=== PATIENT | male | born 1965 | race Caucasian/White ===

== ENCOUNTER 2021-10-18 19:53 | Emergency (ER) | payer OTHER ==
[~2021-10-18] VITALS: Ht 172.7 cm; Wt 71.2 kg
[~2021-10-18 19:53] MED LIST: ANTIDEPRESSANT; CEPH500 PO; CLIN150 PO; CLIN300 PO; Cipro500 MG PO; DOXY100 PO; HYDACE5 PO; LORA1 PO; MELO7.5 PO; Naprosyn500 MG PO; Percocet 5-3251 EACH PO; RXTRAM50 PO; SULTRIDS PO; TRAM50 PO; Ultram50 MG PO; VENL75ER; Vibramycin100 MG PO
== END 2021-10-18 23:10 | disposition home or self-care (01) ==
LOC: ER 19:53
DX: S61.210A Laceration without foreign body of right index finger without damage to nail, initial encounter (principal); S61.411A Laceration without foreign body of right hand, initial encounter; F17.210 Nicotine dependence, cigarettes, uncomplicated; Z88.6 Allergy status to analgesic agent; Z88.8 Allergy status to other drugs, medicaments and biological substances; W23.0XXA Caught, crushed, jammed, or pinched between moving objects, initial encounter
CPT/HCPCS: 12002; 73130; 99283-25

== ENCOUNTER 2022-01-05 12:16 | Emergency (ER) | payer OTHER ==
[~2022-01-05] VITALS: Ht 172.7 cm; Wt 65.8 kg
[2022-01-05 15:57] LABS: Source, Urine Clean Catch
[2022-01-05 16:01] LABS: Appearance, Urine Clear (Clear); Bilirubin, Urine Neg (Neg); Blood, Urine Neg (Neg); Color, Urine Yellow (P-Yellow); Glucose Qualitative, Urine Neg (Neg); Ketones, Urine Neg (Neg); Leukocyte Esterase, Urine 1+ (Neg); Nitrite, Urine Neg (Neg); Protein, Urine 2+ (Neg); Urobilinogen, Urine NORM (Normal); pH, Urine 6.5 (5.0-8.0)
[2022-01-05 16:09] LABS: Bacteria Few /hpf; Mucus Mod (0-Heavy); Red Blood Cells, Urine 0-2 /hpf (0-2); Renal Epithelial Rare /hpf (0-Rare); Squamous Epithelial Cells Rare /hpf (Few); White Blood Cells, Urine 0-2 /hpf (0-5)
[2022-01-05] MEDS ORDERED: HYDR1TAB94 PO (16:28)
== END 2022-01-05 16:30 | disposition home or self-care (01) ==
LOC: ER 12:16
PROVIDERS: Student in an Organized Health Care Education/Training Program
DX: K40.90 Unilateral inguinal hernia, without obstruction or gangrene, not specified as recurrent (principal); Z88.6 Allergy status to analgesic agent; Z88.8 Allergy status to other drugs, medicaments and biological substances; F17.210 Nicotine dependence, cigarettes, uncomplicated
CPT/HCPCS: 76857; 81001; 87086

== ENCOUNTER 2022-05-28 11:41 | Day surgery (SDC) | payer OTHER ==
[~2022-05-28] VITALS: Ht 172.7 cm; Wt 69.6 kg
[~2022-05-28 11:41] MED LIST changes: +HYDR1TAB94 PO
[2022-05-28] MEDS ORDERED: IBU800 M1 (12:11)
== END 2022-05-28 13:47 | disposition home or self-care (01) ==
LOC: ORSCSDS 11:41
PROVIDERS: Surgery
PROC: 0DJD8ZZ Inspection of Lower Intestinal Tract, Via Natural or Artificial Opening Endoscopic (ICD-10-PCS; principal; 2022-05-28 13:00)
DX: Z12.11 Encounter for screening for malignant neoplasm of colon (principal); F17.210 Nicotine dependence, cigarettes, uncomplicated
CPT/HCPCS: J2250; J2704; J7120

== ENCOUNTER 2022-10-22 14:46 | Emergency (ER) | payer OTHER ==
[~2022-10-22] VITALS: Ht 172.7 cm; Wt 68.0 kg
[~2022-10-22 14:46] MED LIST changes: +IBU800 M1
[2022-10-22 15:19] VITALS: BP 140/122
[2022-10-22 15:46] LABS: Source, Urine Clean Catch
[2022-10-22 15:57] LABS: Appearance, Urine Clear (Clear); Bilirubin, Urine Neg (Neg); Blood, Urine Neg (Neg); Color, Urine Yellow (P-Yellow); Glucose Qualitative, Urine Neg (Neg); Ketones, Urine Neg (Neg); Leukocyte Esterase, Urine Neg (Neg); Nitrite, Urine Neg (Neg); Protein, Urine 2+ (Neg); Urobilinogen, Urine NORM (Normal)
[2022-10-22 16:07] LABS: Mucus Light (0-Heavy)
[2022-10-22 16:08] LABS: Red Blood Cells, Urine 0-2 /hpf (0-2); White Blood Cells, Urine 0-2 /hpf (0-5)
[2022-10-22 16:09] LABS: Bacteria Few /hpf; Squamous Epithelial Cells Not Seen /hpf (Few)
== END 2022-10-22 19:45 | disposition home or self-care (01) ==
LOC: ER 14:46
PROVIDERS: Physician Assistant
DX: N50.812 Left testicular pain (principal); F17.210 Nicotine dependence, cigarettes, uncomplicated; Z88.8 Allergy status to other drugs, medicaments and biological substances; Z79.899 Other long term (current) drug therapy
CPT/HCPCS: 76870; 81001; 99283-25; A9270